=== PATIENT | female | born 1945 | race Caucasian/White ===

== ENCOUNTER → 2016-06-23 | Outpatient (CLI) | payer MEDICARE, OTHER ==
[~2016-06-23] MED LIST: ALDACTONE; LORTAB 5/500 501 TAB PO; [UNRECOGNIZED DRUG - OTHER]
== END ==
LOC: SUN.DIA 12:26
DX: E11.40 Type 2 diabetes mellitus with diabetic neuropathy, unspecified (principal); E11.65 Type 2 diabetes mellitus with hyperglycemia; Z71.3 Dietary counseling and surveillance; E78.5 Hyperlipidemia, unspecified; I10 Essential (primary) hypertension
CPT/HCPCS: G0109

== ENCOUNTER → 2016-06-30 | Outpatient (CLI) | payer MEDICARE, OTHER | LOC: SUN.DIA 11:00 | DX: E11.40 Type 2 diabetes mellitus with diabetic neuropathy, unspecified (principal); E11.65 Type 2 diabetes mellitus with hyperglycemia; Z71.3 Dietary counseling and surveillance; E78.5 Hyperlipidemia, unspecified; I10 Essential (primary) hypertension | CPT/HCPCS: G0109 ==

== ENCOUNTER → 2016-07-01 | Outpatient (CLI) | payer MEDICARE, OTHER | LOC: SUN.DIA 09:04 | DX: E11.40 Type 2 diabetes mellitus with diabetic neuropathy, unspecified (principal); E11.65 Type 2 diabetes mellitus with hyperglycemia; E66.9 Obesity, unspecified; Z68.38 Body mass index [BMI] 38.0-38.9, adult; Z71.3 Dietary counseling and surveillance; E78.5 Hyperlipidemia, unspecified; I10 Essential (primary) hypertension | CPT/HCPCS: G0108 ==

== ENCOUNTER → 2016-07-07 | Outpatient (CLI) | payer MEDICARE, OTHER | LOC: SUN.DIA 08:26 | DX: E11.40 Type 2 diabetes mellitus with diabetic neuropathy, unspecified (principal); E11.65 Type 2 diabetes mellitus with hyperglycemia; E66.9 Obesity, unspecified; Z71.3 Dietary counseling and surveillance; E78.5 Hyperlipidemia, unspecified; I10 Essential (primary) hypertension | CPT/HCPCS: G0109 ==

== ENCOUNTER → 2016-07-14 | Outpatient (CLI) | payer MEDICARE, OTHER | LOC: SUN.DIA 10:39 | DX: E11.40 Type 2 diabetes mellitus with diabetic neuropathy, unspecified (principal); E11.65 Type 2 diabetes mellitus with hyperglycemia; Z71.3 Dietary counseling and surveillance; E78.5 Hyperlipidemia, unspecified; I10 Essential (primary) hypertension | CPT/HCPCS: G0109 ==

== ENCOUNTER → 2016-07-22 | Outpatient (CLI) | payer MEDICARE, OTHER | LOC: SUN.DIA 10:10 | DX: E11.40 Type 2 diabetes mellitus with diabetic neuropathy, unspecified (principal); E66.9 Obesity, unspecified; Z68.37 Body mass index [BMI] 37.0-37.9, adult; Z71.3 Dietary counseling and surveillance; E78.5 Hyperlipidemia, unspecified; I10 Essential (primary) hypertension ==

== ENCOUNTER → 2016-09-23 | Outpatient (CLI) | payer MEDICARE, OTHER | LOC: MC.RAD 10:58 | DX: Z12.31 Encounter for screening mammogram for malignant neoplasm of breast (principal); R22.31 Localized swelling, mass and lump, right upper limb ==

== ENCOUNTER → 2019-07-05 | Outpatient (CLI) | payer MEDICARE, OTHER ==
[~2019-07-05] MED LIST changes: +COZAAR 50MG50 MG/TAB PO
== END ==
LOC: COL.RAD 14:23
DX: G31.9 Degenerative disease of nervous system, unspecified (principal); I67.82 Cerebral ischemia; G45.9 Transient cerebral ischemic attack, unspecified
CPT/HCPCS: A9585

== ENCOUNTER → 2019-08-07 | Outpatient (CLI) | payer MEDICARE, OTHER | LOC: COL.RAD 10:41 | DX: Z01.812 Encounter for preprocedural laboratory examination (principal); R91.8 Other nonspecific abnormal finding of lung field | CPT/HCPCS: Q9967 ==

== ENCOUNTER 2019-08-24 14:30 | Outpatient (RCR) | payer MEDICARE, OTHER | END 2019-10-11 | disposition home or self-care (01) | LOC: MKS.ESL.PT | DX: I63.439 Cerebral infarction due to embolism of unspecified posterior cerebral artery (principal) ==

== ENCOUNTER → 2020-01-17 | Outpatient (CLI) | payer MEDICARE, OTHER | LOC: MC.RAD 08:45 | DX: Z12.31 Encounter for screening mammogram for malignant neoplasm of breast (principal) ==

== ENCOUNTER 2021-08-14 09:40 | Day surgery (SDC) | payer MEDICARE, OTHER ==
[~2021-08-14] VITALS: Ht 170.2 cm; Wt 97.6 kg
[2021-08-14 10:14] VITALS: BP 123/85; PULSE 66; TEMP 98.3
[2021-08-14] MEDS ORDERED: CYMBALTA 30MG30 MG PO (10:18)
[2021-08-14] MEDS ORDERED: PLAVIX 75MG TAB75 MG PO (10:19)
[2021-08-14] MEDS ORDERED: DIABETA 2.5MG2.5 MG PO (10:19)
[2021-08-14] MEDS ORDERED: CRANBERRY500 M3 PO (10:20)
[2021-08-14] MEDS ORDERED: ALBUTEROL0.83 MG/ML IH (10:20)
[2021-08-14 13:10] VITALS: BP 139/92; PULSE 57; TEMP 98.1
--- NOTE | 2021-08-14 13:10 | NUR ---
patient arrived back from Endoscopy, she is alert/oriented, vital signs stable, denies pain or nausea, will continue to monitor
[2021-08-14 13:25] VITALS: BP 133/82; PULSE 58; TEMP 98
[2021-08-14 13:40] VITALS: BP 137/80; PULSE 60
--- NOTE | 2021-08-14 13:46 | NUR ---
Patient continues to do well, vitals remain stable, denies any discomfort or nausea and is tolerating PO intake, has been in to discuss procedural findings, I have went over discharge instructions with patient and her family, I will remove IV and escort them out the door
== END 2021-08-14 13:58 | disposition home or self-care (01) ==
LOC: SDCO 09:40
DX: Z12.11 Encounter for screening for malignant neoplasm of colon (principal); K29.50 Unspecified chronic gastritis without bleeding; D12.5 Benign neoplasm of sigmoid colon; D12.2 Benign neoplasm of ascending colon; K57.30 Diverticulosis of large intestine without perforation or abscess without bleeding
CPT/HCPCS: J2704; J7120